=== PATIENT | male | born 1980 | race Two or more races ===

== ENCOUNTER → 2017-02-01 | Day surgery (SDC) | payer OTHER ==
[~2017-02-01] MED LIST: BENTYL20 MG PO; HYDROCODONE/APA1 T15 PO; NO MEDICATIONS; OMEPRAZOLE20 M2 PO; OMEPRAZOLE40 M1; PHENERGAN25 MG PO; REGLAN10 MG
--- NOTE | ~2017-02-01 | OR ---
Unit #: [id number] #: [id number] Patient: JOSÉ MIGUEL ASHLEY [id number] [address] [id number] [id number] O MR#: [id number] NAME: JOSÉ MIGUEL ASHLEY ROOM: Date of Procedure: 02/01/2017 Admission Date: 02/01/2017 Surgeon: Tristan Pablo M.D. : 1980 Attending Physician: Tristan Pablo M.D. Primary Care Physician: Alice Primary Care Physician PROCEDURE OPERATIVE NOTE PREOPERATIVE DIAGNOSIS Dyspepsia and epigastric pain. PROCEDURE PERFORMED Upper GI endoscopy and biopsy. POSTOPERATIVE DIAGNOSES 1. Patient had grade 1 distal erosive esophagitis with linear erosions at the Z-line in the distal esophagus. 2. Small to moderate amount of solid food residue in the stomach in the gastric cavity. 3. The rest of the examination up to the third part of the duodenum was normal. Biopsies obtained for antral CLOtest. RECOMMENDATIONS 1. The patient was advised to use omeprazole 40 mg p.o. daily. 2. In addition, he was started on Reglan 10 mg p.o. b.i.d. 3. He will take small, frequent low residue meals. 4. He must have at least a couple of hours between the time he eats his dinner and goes to sleep. He will be followed up in the office in three to four months time. SEDATION USED MAC. PROCEDURE DESCRIPTION Following a detailed explanation of potential risks and complications of an upper endoscopy, namely perforation, bleeding, and complications related to sedation, the patient was brought to the GI lab and laid in the left lateral decubitus position. The lubricated tip of the Olympus video upper endoscope was passed through the bite block into the proximal esophagus under direct vision. The entire esophageal mucosa was examined. The patient was noted to have grade 1 distal erosive esophagitis. No stricture or mucosal ring was present and no hiatus hernia was seen. The scope was then advanced in the gastric cavity and the latter was insufflated. The mucosa of the fundus, body and antrum was examined. The patient was noted to have a moderate amount of solid food present in the mid body of the stomach. The prepyloric antral area appeared normal. The pylorus was intubated, visualization revealed normal duodenal bulb and second and third part of duodenum. Upon withdrawal and retroflexion the incisura, cardia and greater curve were examined and a biopsy obtained from the antrum for CLOtest. The scope was then withdrawn in the distal Unit #: [id number] #: [id number] Patient: JOSÉ MIGUEL ASHLEY esophagus. The entire esophageal mucosa was examined all the way up to the pharynx. No additional findings noted. The patient tolerated the procedure without any post procedure complications. Dictated by... Jossie Branham/alida TD: 02/01/2017 11:44 JOB #: [id number] PROCEDURE OPERATIVE NOTE Page 1 of 1 X Tristan Pablo MD X PROCEDURE OPERATIVE NOTE
== END | disposition home or self-care (01) ==
LOC: COPS 06:43
DX: K22.10 Ulcer of esophagus without bleeding (principal); K21.9 Gastro-esophageal reflux disease without esophagitis; F17.210 Nicotine dependence, cigarettes, uncomplicated; Z79.899 Other long term (current) drug therapy; Z90.49 Acquired absence of other specified parts of digestive tract
CPT/HCPCS: 87077